=== PATIENT | female | born 1990 | race Caucasian/White ===

== ENCOUNTER → 2021-01-28 | Day surgery (SDC) | payer OTHER ==
[~2021-01-28] MED LIST: ADDERALL 20 MG20 MG PO; AUROVELA FE 1-1 EACH PO; LOSARTAN POTASS25 MG PO; METFORMIN HCL500 M1 PO; ONDANSETRON ODT8 MG PO; QUETIAPINE FUMA25 MG PO; SEROQUEL25 MG PO; SERTRALINE HCL50 MG PO; VICODIN 10/3251 EACH PO
[2021-01-28 07:24] LABS: HCG (URINE) SCREEN NEGATIVE (NEGATIVE)
[2021-01-28 08:02] LABS: HCT 43.1 % (37.0-47.0); HGB 14.9 g/dl (12.5-16.0); MCH 31.3 pg (25.0-31.0); MCHC 34.6 g/dL (32.0-36.0); MCV 90.5 fL (78.0-100.0); MPV 10.1 fL (6.0-9.5); RBC 4.76 M/uL (4.20-5.40); RDW 12.6 % (11.5-14.0)
[2021-01-28 08:17] LABS: ALBUMIN 3.6 g/dL (3.4-5.0); BILIRUBIN - TOTAL 0.3 mg/dL (0.2-1.0); BUN/CREAT RATIO (CALC) 23.3 RATIO; CREATININE 0.6 mg/dL (0.51-0.95); GLOBULIN (CALCULATION) 3.8 g/dL; POTASSIUM 4.1 mmol/L (3.5-5.1); TOTAL PROTEIN 7.4 g/dL (6.4-8.2)
== END | disposition home or self-care (01) ==
LOC: FAS 06:44
PROVIDERS: Surgery
DX: K80.10 Calculus of gallbladder with chronic cholecystitis without obstruction (principal); E28.2 Polycystic ovarian syndrome; E03.9 Hypothyroidism, unspecified; I10 Essential (primary) hypertension; M19.90 Unspecified osteoarthritis, unspecified site; F98.8 Other specified behavioral and emotional disorders with onset usually occurring in childhood and adolescence; F32.9 Major depressive disorder, single episode, unspecified; Z98.890 Other specified postprocedural states; Z20.822 Contact with and (suspected) exposure to COVID-19; Z91.013 Allergy to seafood; Z91.012 Allergy to eggs; Z79.899 Other long term (current) drug therapy; Z80.0 Family history of malignant neoplasm of digestive organs; Z82.5 Family history of asthma and other chronic lower respiratory diseases; Z82.49 Family history of ischemic heart disease and other diseases of the circulatory system; F17.210 Nicotine dependence, cigarettes, uncomplicated
CPT/HCPCS: 36415; 74300; 80053; 84703; 93005; C1758; J1170; J1885; J2250; J2405; J2704; J2710; J3010; J7120; Q9967

== ENCOUNTER → 2021-10-29 | Day surgery (SDC) | payer OTHER ==
[~2021-10-29] VITALS: Ht 162.6 cm; Wt 99.8 kg
[~2021-10-29] MED LIST changes: +DOXYCYCLINE MO100 MG PO; +NORCO 5-325 TA1 EACH PO; +SINGULAIR10 MG PO; +TOPAMAX25 MG PO
[2021-10-29 09:32] LABS: HCG (URINE) SCREEN NEGATIVE (NEGATIVE)
== END | disposition home or self-care (01) ==
LOC: FAS 10-26 09:00
PROVIDERS: Surgery
DX: L30.9 Dermatitis, unspecified (principal); I10 Essential (primary) hypertension; F90.9 Attention-deficit hyperactivity disorder, unspecified type; L73.2 Hidradenitis suppurativa; Z90.49 Acquired absence of other specified parts of digestive tract; F17.210 Nicotine dependence, cigarettes, uncomplicated; Z91.012 Allergy to eggs; Z91.013 Allergy to seafood; Z79.84 Long term (current) use of oral hypoglycemic drugs
CPT/HCPCS: 84703; J1100; J1170; J1885; J2250; J2405; J2704; J3010; J7120

== ENCOUNTER → 2021-11-05 | Day surgery (SDC) | payer OTHER ==
[~2021-11-05] VITALS: Ht 162.6 cm; Wt 99.8 kg
[2021-11-05 08:23] LABS: HCG (URINE) SCREEN NEGATIVE (NEGATIVE)
== END | disposition home or self-care (01) ==
LOC: FAS 07:44
PROVIDERS: Anesthesiology
DX: L73.2 Hidradenitis suppurativa (principal); I10 Essential (primary) hypertension; F90.9 Attention-deficit hyperactivity disorder, unspecified type; Z90.49 Acquired absence of other specified parts of digestive tract; F17.210 Nicotine dependence, cigarettes, uncomplicated; Z91.012 Allergy to eggs; Z91.013 Allergy to seafood; Z79.84 Long term (current) use of oral hypoglycemic drugs
CPT/HCPCS: 84703; J2250; J2704; J3010; J7120

== ENCOUNTER 2022-03-10 08:58 | Emergency (ER) | payer OTHER ==
[2022-03-10 11:01] LABS: BILIRUBIN 1+ mg/dL (NEGATIVE); BLOOD NEGATIVE Ery/uL (NEGATIVE); CLARITY CLEAR (CLEAR); COLOR YELLOW (YELLOW); GLUCOSE (U) NORMAL (NORMAL); LEUKOCYTES NEGATIVE Leu/uL (NEGATIVE); NITRITE NEGATIVE (NEGATIVE); PROTEIN 1+ mg/dL (NEGATIVE); SPECIFIC GRAVITY 1.025 (1.001-1.030)
[2022-03-10 11:09] LABS: BACTERIA 1+
[2022-03-10 11:10] LABS: MUCOUS TRACE; TRANSITIONAL EPITHELIAL CELLS RARE; URINARY RBC RARE
[2022-03-10 11:20] LABS: BASOPHIL 0.3 % (0-2); EOSINOPHIL 0.2 % (0-5); HCT 38.9 % (37.0-47.0); HGB 13.2 g/dl (12.5-16.0); MCH 30.6 pg (25.0-31.0); MCHC 33.9 g/dL (32.0-36.0); MPV 10.6 fL (6.0-9.5); NEUTROPHIL 83.9 % (41-80); NRBC 0; PLT 137 K/uL (150-400); RBC 4.32 M/uL (4.20-5.40); RDW 13.3 % (11.5-14.0); WBC 6.6 K/uL (4.0-10.5)
[2022-03-10 11:25] LABS: BILIRUBIN - TOTAL 0.5 mg/dL (0.2-1.0); BUN/CREAT RATIO (CALC) 10.9 RATIO; CREATININE 0.55 mg/dL (0.51-0.95); GLOBULIN (CALCULATION) 3.8 g/dL; POTASSIUM 3.7 mmol/L (3.5-5.1); TOTAL PROTEIN 6.8 g/dL (6.4-8.2)
== END 2022-03-10 13:17 | disposition home or self-care (01) ==
LOC: FER 08:58
PROVIDERS: Emergency Medicine
DX: O21.0 Mild hyperemesis gravidarum (principal); O99.332 Smoking (tobacco) complicating pregnancy, second trimester; F17.210 Nicotine dependence, cigarettes, uncomplicated; Z3A.15 15 weeks gestation of pregnancy; Z91.012 Allergy to eggs; Z91.013 Allergy to seafood
CPT/HCPCS: 36415; 80053; 81001; 85025; 87088; J7030